=== PATIENT | female | born 1960 | race Caucasian/White ===

== ENCOUNTER 2020-03-04 09:23 | Emergency (ER) | payer BC ==
--- OUTSIDE RECORDS SUMMARY | 2020-03-04 09:25 | XMS REPORT | Continuity of Care Document ---
:1960 Author Organization [facility] t Address [address] [place] [address] Care Team Providers Name Role Phone Unavailable Unavailable Unavailable Payers Payer Name Policy Type Policy Number Effective Date Expiration Date S ource Problems This patient has no known problems. Allergies, Adverse Reactions, Alerts Allergy Allergy Status Severity Reaction(s) Onset Inactive Treating Comm ents Source Name Type Date Date Clinician codeine DA Active [place] 2020-0 [facility] [place] [facility] [place] [facility] [place] [facility] [place] Active [place] 0 [facility] [facility]- [place] [facility] [place] 0 [facility] [place] [facility]13 [place] [facility] [place] 2019-02 [facility] [place] 2019-02 [facility] 2-30 [place] 00:[facility]: [facility] [place] 2019-02 [facility] 2-[facility] [place] 2019-02 [facility] [place] 2- [place] 00:[facility] [place] 2019- [facility] 8 [facility] [place] [facility]: [facility] [place] [facility] 09-[facility] [place] [facility] 09-[facility] [place] [facility] [place] 09-30 [place] 00:[facility] [place] 2016-02 [facility] 2 [place] 00:[facility]: [facility] cl[place] 2016-02 [facility] acid 04-15 [place] 00:00: [facility] [place] 2016-02 [facility] 04-15 [place] 00:00: [facility]ope 00 [facility] Medications This patient has no known medications. Procedures This patient has no known procedures. Results Test Description Test Time Test Comments Results Result [facility] e Comments - XR FLUORO FOR 2020-03-02 SPINE INJ 21:04:00 [facility] 1960 Sex: F Patient Name: ERIN WELLS Unit No: [id number] EXAMS: CPT CODE: [id number] XR FLUORO FOR SPINE INJ 92591 DIAGNOSTIC SACROILIAC INJECTION REFERRAL PHYSICIAN: None PREOPERATIVE DIAGNOSIS: Sacroiliitis. POSTOPERATIVE DIAGNOSIS: Bilateral symptomatic degenerative sacroiliac joints PROCEDURES PERFORMED: Fluoroscopically guided needle localization of the bilateral sacroiliac joints with arthrograms and diagnostic injection of local anesthetic and steroid. FINDINGS: Moderate to marked capsular degeneration was seen at the bilateral sacroiliac joints with complete joint filling bilaterally. Provocation with injection was negative. Aspiration was negative. Anesthetic response was positive with the patient noting complete relief of her low back pain. Preinjection VAS 2/10. Postinjection VAS 0/10. Steroid response pending follow-up. ESTIMATED BLOOD LOSS: Minimal ANESTHESIA: TIVA COMPLICATIONS: None. DETAILS OF PROCEDURE: After obtaining stable vital signs, informed consent and IV access, with no contraindications, the patient was taken to the fluoroscopy suite and placed in a prone position with all extremities padded and appropriate monitors placed. The patient was sterilely prepped and draped over the lumbosacral spine. Using fluoroscopic visualization, the insertion sites were marked for inferior approaches and using standard technique, 22 gauge needle was advanced into the joint capsule without paresthesias. Aspiration was negative. Isovue-300 contrast 0.5 mL was injected to produce each arthrogram. There were no signs of intravascular uptake. Bupivicaine 0.75% 1 mL with Lidocaine 4% 0.5 mL and triamcinolone 30 mg was injected incrementally with frequent negative aspirations at each joint. There were no signs of intravascular uptake. The patient's vital signs remained stable. The needles were removed and the patient was taken to the PACU in good condition. Image: Image 1 Image: Image 2 Image: Image 3 Image: Image 4 Image: Image 5 [place] [facility] NAME: ERIN WELLS [address] [facility] PHYS: Tim Tamayo MD [place], [place] [address] : 1960 AGE: 59 SEX: F LOC: [place] PHONE #: [phone] EXAM DATE: 03/02/2020 STATUS: [place] [facility] [place] FAX #: [phone] RAD #: D/C DT PAGE 1 Signed Report (CONTINUED) Patient Name: ERIN WELLSLER Unit No: [id number] EXAMS: CPT CODE: [id number] XR FLUORO FOR SPINE INJ 57699 <Continued> at 2104 Reported and signed by: Tim Lemus M.D. CC: Agustin Trujillo MD Technologist: Migdalia Mccollum(R) Transcribed D/ (2103) [facility] [place] [facility] NAME: ERIN WELLS [address] [facility] PHYS: Tim Tamayo MD [place], [place] [address] : 1960 AGE: 59 SEX: F LOC: [place] PHONE #: [phone] EXAM DATE: 03/02/2020 STATUS: REG [facility] [place] FAX #: [phone] RAD #: D/C DT PAGE 2 Signed Report Patient Name: ERIN WELLS Unit No: [id number] EXAMS: CPT CODE: [id number] XR FLUORO FOR SPINE INJ 70393 <Continued> Orig Print D/T: S: 03/02/2020 (2106) [place] [facility] NAME: YESI WELLSSHANI GUERRERO [address] [facility] PHYS: Tim Tamayo MD [place], [place] [address] : 1960 AGE: 59 SEX: F LOC: [place] PHONE #: [phone] EXAM DATE: 03/02/2020 STATUS: REG [facility] [place] FAX #: [phone] RAD #: D/C DT PAGE 3 Signed Report - XR FLUORO FOR 2020-02-17 SPINE INJ 20:06:00 [facility] : 1960 Sex: F Patient Name: ERIN WELLS Unit No: [id number] EXAMS: CPT CODE: [id number] XR FLUORO FOR SPINE INJ 01814 LUMBAR FACET INJECTION DIAGNOSTIC REFERRAL PHYSICIAN: None PREOPERATIVE DIAGNOSIS: Lumbar spondylosis without myelopathy or radiculopathy POSTOPERATIVE DIAGNOSIS: Lumbar spondylosis without myelopathy or radiculopathy PROCEDURE PERFORMED: Fluoroscopically guided needle localization of the bilateral L3-4, bilateral L4-5 and left L5-S1 facets with arthrograms and diagnostic injection of local anesthetic and steroid. FINDINGS: Marked degeneration was seen at the bilateral L3-4 and L4-5 facets with moderate degeneration at the left L5-S1 facet. Aspiration was negative. Provocation was negative. Anesthetic response was positive with the patient noting relief of her low back pain. Preinjection VAS 6/10. Postinjection VAS 0/10. Steroid response pending follow-up. ESTIMATED BLOOD LOSS: Minimal ANESTHESIA: TIVA COMPLICATIONS: None DETAILS OF PROCEDURE: After obtaining stable vital signs, informed consent and IV access patient was taken to the fluoroscopy suite where the patient was placed in a prone position with all extremities padded and appropriate monitors placed. The patient was sterilely prepped prepped and draped over the lumbosacral spine. Using fluoroscopic visualization, the insertion sites were marked for a paravertebral approach to each joint. Using standard technique, a 26 -gauge needle was inserted into each joint capsule without paresthesias. At all levels, aspiration was negative for clear serous fluid. Isovue-300 contrast 0.2 mL was injected to produce each arthrogram. There were no signs of intravascular or intrathecal uptake. Bupivicaine 0.75% 0.5 mL with Lidocaine 4% 0.25 ml and triamcinolone 12 mg was then injected incrementally into each joint. There were no signs of intravascular or intrathecal uptake. The patient's vital signs remained stable. All needles were removed and the patient was taken to the PACU in good condition. Image: Image 1 Image: Image 2 at 2006 Reported and signed by: Tim Lemus M.D. [place] [facility] NAME: ERIN WELLS [address] [facility] PHYS: Tim Tamayo MD [place], [place] [address] : 1960 AGE: 59 SEX: F LOC: [place] PHONE #: [phone] EXAM DATE: 02/17/2020 STATUS: REG [facility] FAX #: [phone] RAD #: D/C DT PAGE 1 Signed Report (CONTINUED) Patient Name: ERIN WELLS Unit No: [id number] EXAMS: CPT CODE: [id number] XR FLUORO FOR SPINE INJ 70061 <Continued> CC: Tim Lemus MD; Agustin Trujillo MD Technologist: KATARINA BARKER RT(R) Transcribed D/ (2005) [facility] NAME: YESI WELLSSHANI GUERRERO [address] [facility] [address] PHYS: Tim Tamayo MD [place] [address] : 1960 AGE: 59 SEX: F LOC: [place] PHONE #: [phone] EXAM DATE: 02/17/2020 STATUS: [facility] [place] FAX #: [phone] RAD #: D/C DT PAGE 2 Signed Report Patient Name: ERIN WELLS Unit No: [id number] EXAMS: CPT CODE: [id number] XR FLUORO FOR SPINE INJ 56008 <Continued> Orig Print D/T: S: 02/17/2020 (2009) [facility] NAME: ERIN WELLS [address] [facility] PHYS: Tim Tamaoy MD [place] [address] : 1960 AGE: 59 SEX: F LOC: [place] PHONE #: [phone] EXAM DATE: 02/17/2020 STATUS: REG [facility] [place] FAX #: [phone] RAD #: D/C DT PAGE 3 Signed Report - XR FLUORO FOR 2019-09-30 Patient Name: SPINE INJ 10:57:00 ERIN WELLS Unit No: [id number] EXAMS: CPT CODE: [id number] XR FLUORO FOR SPINE INJ 95509 LUMBAR FACET INJECTION REFERRING PHYSICIAN: PREOPERATIVE DIAGNOSIS: 1. Lumbar facet arthropathy POSTOPERATIVE DIAGNOSIS: 1. Left L4-5, left L5-S1 lumbar facet spondylosis without radiculopathy PROCEDURES PERFORMED Fluoroscopically guided needle localization of the left L4-5, left L5-S1 lumbar facets with injection of local anesthetic and steroids 2. Arthrograms of the left L4-5, left L5-S1 lumbar facets FINDINGS: 1. Provocation left L5-S1 facet 50% relief ANTIBIOTIC: Cefazolin ESTIMATED BLOOD LOSS: Minimal ANESTHESIA: (TIVA) Total intravenous anesthetic (patient intolerant to sedatives and hypnotics). COMPLICATIONS: None DETAILS OF PROCEDURE: After obtaining stable vital signs, informed consent and IV access, with no known contraindications to proceeding, the patient was taken to the fluoroscopy suite and placed in a prone position with all extremities padded and appropriate monitors placed. A sterile prep and drape was performed over the lumbosacral spine. Using fluoroscopic visualization at each level the insertion site was marked for a paravertebral approach to the facets. Using standard technique, a 25 gauge needle was advanced to the facets. In AP view, the needle was advanced into the facets. Then, 1 ml of Isovue-300 contrast was injected to produce the arthrograms. AP, lateral and oblique views were documented. No paresthesias were elicited with needle insertion or injection and there were no signs of intravascular or intrathecal uptake. Then, ml of 0.75% bupivacaine with 1 ml of 4% lidocaine and 10 mg of triamcinolone was injected incrementally with frequent negative aspirations. There were no signs of intravascular or intrathecal uptake. Each subsequent level was done using the same technique and medications. The patient's vital signs remained stable. The patient was taken to the PACU in good condition. at 1057 Reported and signed by: River Diaz M.D. [facility] NAME: ERIN WELLS [address] [facility] PHYS: DOCUD - River Diaz MD [place], [place] [address] : 1960 AGE: 59 SEX: F LOC: [place] PHONE #: [phone] EXAM DATE: 09/30/2019 STATUS: REG [facility] [place] FAX #: [phone] RAD #: D/C DT PAGE 1 Signed Report (CONTINUED) Patient Name: ERIN WELLS Unit No: [id number] EXAMS: CPT CODE: [id number] XR FLUORO FOR SPINE INJ 59832 <Continued> CC: Agustin Trujillo MD Technologist: Migdalia Mccollum(R) Transcribed D/ (1057) [email or web address] [place] [facility] NAME: ERIN WELLS [address] [facility] [address] PHYS: ANGELITO - River Diaz MD [place] [address] : 1960 AGE: 59 SEX: F LOC: [place] PHONE #: [phone] EXAM DATE: 09/30/2019 STATUS: REG [facility] [place] FAX #: [phone] RAD #: D/C DT PAGE 2 Signed Report Patient Name: ERIN WELLS Unit No: [id number] EXAMS: CPT CODE: [id number] XR FLUORO FOR SPINE INJ 23045 <Continued> Orig Print D/T: S: 09/30/2019 (1100) [facility] NAME: YESI WELLSSHANI GUERRERO [address] [facility] [address] PHYS: ANGELITO - River Diaz MD [place] [address] : 1960 AGE: 59 SEX: F LOC: [place] PHONE #: [phone] EXAM DATE: 09/30/2019 STATUS: REG [facility] [place] FAX #: [phone] RAD #: D/C DT PAGE 3 Signed Report
--- NOTE | 2020-03-04 10:32 | ER ---
Nurse's Notes [facility] Name: Micah Finnegan Age: 59 yrs Sex: Female : 1960 Arrival Date: 03/04/2020 Time: 09:37 Bed 24 Private MD: Diagnosis: Pain in Right Leg Presentation: 03/04 09:46 Chief complaint: Right ankle pain upon waking today, pain radiated to right calf and hb knee, now pain is mostly behind the knee. pain is worse with standing and radiated from knee to calf. Coronavirus screen: At this time, the client does not indicate any symptoms associated with coronavirus-19. Ebola Screen: No symptoms or risks identified at this time. Initial Sepsis Screen: Does the patient meet any 2 criteria? No. Patient's initial sepsis screen is negative. Does the patient have a suspected source of infection? No. Patient's initial sepsis screen is negative. Risk Assessment: Do you want to hurt yourself or someone else? Patient reports no desire to harm self or others. Onset of symptoms. 09:46 Method Of Arrival: Wheelchair hb 09:46 Acuity: HOLGER 3 hb Historical: - Allergies: 09:48 Augmentin; hb 09:48 Benadryl; hb - PMHx: 09:48 adrenal insuf.; Hypertension; hb - PSHx: 09:48 Cholecystectomy; Hysterectomy; Carpal Tunnel Repair; ankle sx; Adenoids; hb - Immunization history:: Adult Immunizations up to date. - Social history:: Smoking status: Patient denies any tobacco usage or history of. Screenin:51 Abuse screen: Denies threats or abuse. Nutritional screening: No deficits noted. em Tuberculosis screening: No symptoms or risk factors identified. Fall Risk None identified. Vital Signs: 09:46 BP 168 / 77; Pulse 68; Resp 16; Temp 97.7; Pulse Ox 100% on R/A; Pain 7/10; hb ED Course: 09:37 Patient arrived in ED. ds1 09:39 Rasta Garcia PA is PHCP. jmm 09:39 Matthias Hart MD is Attending Physician. jmm 09:48 Triage completed. hb 09:48 Arm band placed on. hb 09:50 Elliot Lawson RN is Primary Nurse. em 09:51 Patient has correct armband on for positive identification. Call light in reach. Adult em w/ patient. 10:41 US Extremity Venous Unilateral Ltd In Process Unspecified. EDMS 10:54 No provider procedures requiring assistance completed. Patient did not have IV access em during this emergency room visit. Administered Medications: No medications were administered Outcome: 10:31 Discharge ordered by . catherine 10:54 Discharged to home ambulatory. em 10:54 Condition: stable 10:54 Discharge instructions given to patient, Instructed on discharge instructions, follow up and referral plans. Demonstrated understanding of instructions, follow-up care. 10:55 Patient left the ED. em Signatures: Dispatcher [employer] EDMS Rasta Garcia PA PA jmm Munoz, Edgar, RN RN em Xiomy Haynes ds1 Odette Carbone, RN RN hb
--- NOTE | 2020-03-04 10:32 | EDPHYS ---
Physician Documentation [facility] Name: Micah Finnegan Age: 59 yrs Sex: Female : 1960 Arrival Date: 03/04/2020 Time: 09:37 Bed 24 Private MD: ED Physician Matthias Hart HPI: 03/04 09:55 This 59 yrs old Female presents to ER via Wheelchair with complaints of Leg jmm Pain. 09:55 The patient presents with pain. Onset: The symptoms/episode began/occurred gradually, jmm this morning, at 03:00. Modifying factors: The symptoms are alleviated by nothing. the symptoms are aggravated by nothing. Associated signs and symptoms: Pertinent positives: calf tenderness, Pertinent negatives fever. This is a 59 year old female with a history of htn that presents to the ED with complaints of right lower leg swelling which presents to the ED with complaints of right lower leg pain beginning this morning around 0300. Patient recently recovered from covid 19. Patient received l spine cortisone injection yesterday as well. Denies fever. . Historical: - Allergies: 09:48 Augmentin; hb 09:48 Benadryl; hb - PMHx: 09:48 adrenal insuf.; Hypertension; hb - PSHx: 09:48 Cholecystectomy; Hysterectomy; Carpal Tunnel Repair; ankle sx; Adenoids; hb - Immunization history:: Adult Immunizations up to date. - Social history:: Smoking status: Patient denies any tobacco usage or history of. ROS: 09:55 Constitutional: Negative for fever, chills, and weight loss, Cardiovascular: Negative jmm for chest pain, palpitations, and edema, Respiratory: Negative for shortness of breath, cough, wheezing, and pleuritic chest pain. 09:55 MS/extremity: Positive for pain. 09:55 All other systems are negative. Exam: 09:55 Constitutional: This is a well developed, well nourished patient who is awake, alert, jmm and in no acute distress. Head/Face: atraumatic. Eyes: EOMI, no conjunctival erythema appreciated ENT: Moist Mucus Membranes Neck: Trachea midline, Supple Chest/axilla: Normal chest wall appearance and motion. Cardiovascular: Regular rate and rhythm. No edema appreciated Respiratory: Normal respirations, no respiratory distress appreciated Abdomen/GI: Non distended, soft Back: Normal ROM Skin: General appearance color normal 09:55 Neuro: Awake and alert, normal gait Psych: Behavior is normal, Mood is normal, Patient is cooperative and pleasant 09:55 Musculoskeletal/extremity: ROM: intact in all extremities. Vital Signs: 09:46 BP 168 / 77; Pulse 68; Resp 16; Temp 97.7; Pulse Ox 100% on R/A; Pain 7/10; hb MDM: 09:50 Patient medically screened. [facility] 10:29 Data reviewed: vital signs, nurses notes. Counseling: I had a detailed discussion with catherine the patient and/or guardian regarding: the historical points, exam findings, and any diagnostic results supporting the discharge/admit diagnosis, radiology results, the need for outpatient follow up, to return to the emergency department if symptoms worsen or persist or if there are any questions or concerns that arise at home. ED course: Patient is alert and non toxic in appearance in the ED US is negative. Advised to follow up with pcp and otherwise given strict return precautions. Patient understood and agrees with the plan of care. . 03/04 09:55 Order name: Extremity Venous Unilateral Ltd [facility] Administered Medications: No medications were administered Disposition: 11:17 Co-signature as Attending Physician, Matthias Hart MD I agree with the assessment and kdr plan of care. Disposition: 03/04/20 10:31 Discharged to Home. Impression: Pain in Right Leg. - Condition is Stable. - Discharge Instructions: Leg Cramps. - Medication Reconciliation Form, Thank You Letter, Antibiotic Education, Prescription Opioid Use form. - Follow up: Private Physician; When: 2 - 3 days; Reason: Recheck today's complaints, Continuance of care, Re-evaluation by your physician. Signatures: Dispatcher [employer] EDMS Matthias Hart MD MD kdr Mickail, Joel, PA PA Elliot Montero RN RN Odette Medina RN RN Corrections: (The following items were deleted from the chart) 10:55 10:31 03/04/2020 10:31 Discharged to Home. Impression: Pain in Right Leg. Condition is em Stable. Forms are Medication Reconciliation Form, Thank You Letter, Antibiotic Education, Prescription Opioid Use. Follow up: Private Physician; When: 2 - 3 days; Reason: Recheck today's complaints, Continuance of care, Re-evaluation by your physician. catherine
--- NOTE | 2020-03-04 10:58 | RAD REPORT ---
EXAM DESCRIPTION: USExtremity Venous Uni Ltd03/04/2020 10:41 am CLINICAL HISTORY: Right leg pain COMPARISON: None. FINDINGS: Right common femoral, superficial femoral, popliteal and right posterior tibial veins are compressible and demonstrate augmentation. Doppler demonstrates good flow. IMPRESSION: No evidence of deep venous thrombosis involving the right lower extremity.
[2020-03-04 10:59] VITALS: BP 168/77; TEMP 97.7; O2SAT 100
== END 2020-03-04 10:55 | disposition home or self-care (01) ==
LOC: ER 09:23
DX: M79.661 Pain in right lower leg (principal); I10 Essential (primary) hypertension; Z88.1 Allergy status to other antibiotic agents; Z88.8 Allergy status to other drugs, medicaments and biological substances
CPT/HCPCS: 93971; 99283